=== PATIENT | male | born 1940 | race Caucasian/White ===

== ENCOUNTER → 2017-05-19 | Outpatient (CLI) | payer OTHER, BC ==
[~2017-05-19] MED LIST: ASPIRIN EC81 M1 PO; B12INJ; FOLIC ACID1 MG PO; LAMICTAL 25 MG25 M1; LISINOPRIL-HCT1 EAC2; LISINOPRIL40 MG PO; PILOCARPINE HCL5 M1 PO; SIMVASTATIN20 MG; TOPROL XL100 MG; VITAMINE B-1100 MG PO
== END ==
LOC: RAD 07:46
DX: R92.8 Other abnormal and inconclusive findings on diagnostic imaging of breast (principal)

== ENCOUNTER → 2018-07-05 | Outpatient (CLI) | payer OTHER, BC | LOC: RAD 01:24 → MRI 10:31 → RAD 10:45 | DX: N62 Hypertrophy of breast (principal); I10 Essential (primary) hypertension; E78.00 Pure hypercholesterolemia, unspecified ==